=== PATIENT | female | born 1945 | race African-American/Black ===

== ENCOUNTER → 2017-10-13 | Outpatient (CLI) | payer OTHER | END | disposition home or self-care (01) | LOC: RAD 12:54 | DX: M51.36 Other intervertebral disc degeneration, lumbar region (principal); M47.896 Other spondylosis, lumbar region | CPT/HCPCS: 72100 ==

== ENCOUNTER → 2019-08-14 | Outpatient (CLI) | payer MEDICARE, OTHER ==
[2013-11-24 11:13] VITALS: BP 152/81
--- NOTE | 2019-08-14 13:27 | KCIC ---
INDICATION: Osteoporosis screening. Postmenopausal evaluation COMPARISON: None. TECHNIQUE: Bone densitometry was performed through the lumbar spine and proximal femur. FINDINGS: Lumbar Spine: BMD: 1.06 T-Score: 0.1 Proximal Femur: BMD: 0.87 T-Score: -0.6 IMPRESSION: 1. Lumbar spine falls within the normal range. 2. Proximal femur falls within the normal range. Electronically signed by: Rogerio Prince MD (08/14/2019 1:25 PM) [id number]
--- NOTE | 2019-08-14 13:35 | KCIC ---
EXAM: Bilateral digital screening mammogram with tomosynthesis. HISTORY: 74-year-old female presents for screening mammography. TECHNIQUE: Full-field digital craniocaudal and mediolateral oblique 2D and 3D tomosynthesis images of both breasts are obtained for evaluation. Computer aided detection with Referral[employer] software version 9.3 was applied. COMPARISON: 09/16/2013 BREAST PARENCHYMAL DENSITY: Level C - Heterogeneously dense. FINDINGS: There is no new suspicious mass, microcalcification or region of architectural distortion. There are stable areas of nodularity and asymmetry within both breasts. IMPRESSION: BI-RADS Category 2: Benign finding(s). RECOMMENDATION: Annual mammography is recommended. If your mammogram demonstrates that you have dense breast tissue, which could hide abnormalities, and if you have other risk factors for breast cancer that have been identified, you might benefit from supplemental screening tests that may be suggested by your ordering physician. Dense breast tissue, in and of itself, is a relatively common condition. This information is not provided to cause undue concern, but rather to raise your awareness and to promote discussion with your physician regarding the presence of other risk factors, in addition to dense breast tissue. A report of your mammography results will be sent to you and your physician. You should contact your physician if you have any questions or concerns regarding this report. Mammography is a sensitive method for finding small breast cancers, but it does not detect them all and is not a substitute for careful clinical examination. A negative mammogram does not negate a clinically suspicious finding and should not result in delay in biopsying a clinically suspicious abnormality. PQRS compliance statement - Patient information was entered into a reminder system with a target due date for the next mammogram. "Our facility is accredited by the [employer] Mammography Program." Electronically signed by: Denise Feliz MD (08/14/2019 1:32 PM) [id number]
== END | disposition home or self-care (01) ==
LOC: KCIC DEXA 12:22
PROVIDERS: ATTEND Family Medicine
DX: Z12.31 Encounter for screening mammogram for malignant neoplasm of breast (principal); Z13.820 Encounter for screening for osteoporosis; Z78.0 Asymptomatic menopausal state
CPT/HCPCS: 77063; 77067; 77080

== ENCOUNTER → 2020-03-21 | Outpatient (CLI) | payer MEDICARE ==
[2013-11-24 11:13] VITALS: BP 152/81
--- NOTE | 2020-03-21 15:44 | RAD ---
CT HEAD WO CONTRAST Date: 03/21/2020 3:14 PM Clinical Indication: BALANCE PROBLEMS Comparison: None. Technique: 5 mm axial tomographic images were obtained of the head without contrast. These were viewed on brain and bone windows. One or more of the following dose reduction techniques were utilized: Automated exposure control (AEC), Adjustment of mA and/or kV according to patient size, Use of iterative reconstruction technique such as ASiR, CT scan done according to ALARA and image gently/image wisely Findings: Mild generalized cerebral and cerebellar volume loss. Mild nonspecific periventricular hypoattenuation, most commonly seen with chronic small vessel ischemic disease. Calcified atherosclerosis of the bilateral cavernous and paraclinoid internal carotid arteries and intracranial vertebral arteries. No intra- or extra-axial mass or fluid collection. No acute hemorrhage. The ventricles are normal in size, shape, and morphology. The narvaez-white matter junction is normal. The subarachnoid cisterns are patent. The visualized paranasal sinuses are normal. The visualized portions of the orbits and globes are normal. The mastoid air cells are clear. 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 Impression: No acute intracranial process. Mild cerebral volume loss. Mild chronic small vessel ischemic disease. Electronically signed by: Sav Jessica MD (03/21/2020 3:41 PM) [id number]
--- NOTE | 2020-03-21 15:45 | RAD ---
DOPPLER CAROTID BILAT History: CVA Multiple grayscale, color, and duplex spectral analysis waveform sonographic images were acquired of the carotid, subclavian, and vertebral arteries. Comparison: None Findings: RIGHT SIDE: Peak systolic flow velocity of the distal CCA is 63 cm/sec. Peak systolic flow velocity of the ICA is 60 cm/sec. The ICA/CCA ratio is 1.0. Peak end diastolic flow velocity of the ICA is 16 cm/sec. The peak systolic velocity of the ECA is 52 cm/sec. LEFT SIDE: Peak systolic flow velocity of the distal CCA is 82 cm/sec. Peak systolic flow velocity of the ICA is 82 cm/sec. The ICA/CCA ratio is 1.. Peak end diastolic flow velocity of the ICA is 19 cm/sec. Peak systolic flow velocity of the ECA is 72 cm/sec. Vertebral arteries: Bilateral vertebral arteries demonstrate antegrade flow. Impression: There is no evidence of a hemodynamically significant stenosis. PQRS Compliance Statement - Stenosis calculations for carotid ultrasound studies are derived from validated velocity criteria which are known to correlate with the NASCET methodology. Electronically signed by: Sav Jessica MD (03/21/2020 3:43 PM) [id number]
== END ==
LOC: US 14:39
PROVIDERS: ATTEND Internal Medicine
DX: I65.23 Occlusion and stenosis of bilateral carotid arteries (principal); I63.9 Cerebral infarction, unspecified; I67.2 Cerebral atherosclerosis
CPT/HCPCS: 70450; 93880